=== PATIENT | female | born 1955 | race Caucasian/White ===

== ENCOUNTER 2022-06-04 19:35 | Emergency (ER) | payer BC, SELFPAY ==
[2022-06-04 20:04] VITALS: BP 180/102; PULSE 74; RESP 18; TEMP 37.1; O2SAT 99
--- NOTE | 2022-06-04 20:45 | ED.GENADUL_ITS ---
Discharge Plan Disposition Patient Disposition: HOME Condition: Improving Discharge Details Chief Complaint: Nk/Back Pain Clinical Impression: Acute back pain Primary Care Provider: Barbara Beckford ED Provider: Joseph Taylor Home Meds and New Rx's Prescriptions: No Action No Known Home Meds Discharge Instructions Instructions: Back Pain (ED) Additional Instructions: Please follow-up with your primary care physician. Please return to the emergency department for any worsening symptoms. Medical Decision Making 67-year-old female denies past medical history, prior sections in the past, presents with left lower back discomfort over the last day intermittent in nature both episodes were following a snack, endorses belching and flatus, denies nausea or vomiting denies abdominal pain or chest pain or shortness of breath. No midline spinal tenderness. Neurologically intact ambulatory without assistance afebrile nontoxic hemodynamically stable. Consider muscle spasm versus passed kidney stone versus UTI versus must consider colitis diverticulitis versus less likely biliary colic given location low suspicion for aortic pathology. Perhaps the temporal relationship with a snack is coincidental and this is a simple muscle spasm will trial medications to treat such however if patient has any abnormalities of her labs will have low suspicion to obtain CT abdomen pelvis to assess for intra-abdominal process. Currently asymptomatic resting comfortably. Fluids Toradol 22: 49 patient resting comfortably no acute distress asymptomatic. Trace RBC on UA. Consider passed kidney stone. Muscles consider likely muscle spasm. HPI General Date/Time Provider Initiated Documentation: 06/04/22 20:01 . HPI Narrative: 67-year-old female denies past medical history endorses left lower back discomfort over the past day intermittent in nature associate with belching and passing flatus, worse after eating food. Denies abdominal pain nausea or vomiting. Denies diarrhea or constipation. Denies urinary symptoms. History of 3 prior sections. No other abdominal surgeries. Feeling asymptomatic currently. Localized area of muscle tension noted by her Related Data Home Medications Medication Instructions Recorded Confirmed Unknown [No Known Home Meds] 06/04/22 06/04/22 Allergies Allergy/AdvReac Type Severity Reaction Status Date / Time latex Allergy Unverified 06/04/22 20:12 General Stated Complaint: Nk/Back Pain KAY: 3 Review of Systems Narrative: Review of Systems Constitutional: negative Eyes: negative ENT: negative Cardiovascular: negative Respiratory: negative Gastrointestinal: negative : negative Musculoskeletal: Back pain Skin: negative Neurologic: negative Psych: negative PFSH All Active Problems (Updated 06/04/22 @ 22:50 by Joseph Taylor MD) Acute back pain (Acute) Social History Smoking/Tobacco Use Status: Never Smoking risk assessment performed?: Yes Alcohol Intake: current Alcohol Intake frequency: holidays/special occasions only Alcohol type: wine Drug use: Never Substance use type: does not use Do you feel safe at home: Yes Do you feel safe in your relationship?: Yes Exam Narrative Exam Narrative: Physical Examination General: alert, awake, cooperative, resting comfortably, no acute distress HEENT: normocephalic, atraumatic; PERRL, EOM intact, conjunctiva normal; no nasal discharge; moist mucous membranes, oral and pharyngeal mucosa normal, tolerating secretions Neck: supple, trachea midline; full ROM Chest: normal to inspection Respiratory: normal respiratory effort, speaking in full sentences, clear to auscultation, no wheezing, rales or rhonchi Cardiac: regular rate, regular rhythm, S1S2 intact, no murmurs rubs or gallops GI: abdomen soft, non-tender, non-distended; no palpable mass or hepatosplenomegaly Back: No midline spinal tenderness Skin: no lesions, rashes or trauma appreciated Neuro: AAOx3, normal speech, moving all extremities Psych: Appropriate mood and affect Course Vital Signs Vital signs: Vital Signs Temperature 37.1 C 06/04/22 20:04 Pulse 74 06/04/22 20:04 Respiratory Rate 18 06/04/22 20:04 Blood Pressure 180/102 H 06/04/22 20:04 Pulse Oximetry 99 06/04/22 20:04 Temperature 37.1 C 06/04/22 20:04 Temperature Source Skin 06/04/22 20:04 Pulse 74 06/04/22 20:04 Respiratory Rate 18 06/04/22 20:04 Respiratory Effort 06/04/22 20:09 Blood Pressure 180/102 H 06/04/22 20:04 Blood Pressure Position Sitting 06/04/22 20:04 Pulse Oximetry 99 06/04/22 20:04 Oxygen Delivery Method Room Air 06/04/22 20:04 Oxygen Flow Rate 0 06/04/22 20:04 Pain Level 4 06/04/22 20:04 Comment 06/04/22 20:04
[2022-06-04] MEDS: Normal Saline 1,000 ML 1000 ML IV (20:53)
[2022-06-04 20:54] LABS: Abs Immature Grans 0.02 10^3/uL (0.0-0.06); Absolute Basophil Count 0.03 10^3/uL (0.0-0.2); Absolute Eosinophil Count 0.05 10^3/uL (0.0-0.7); Absolute Lymphocyte Count 1.01 10^3/uL (1.2-3.4); Absolute Monocyte Count 0.62 10^3/uL (0.1-0.8); Absolute Neutrophil Count 7.45 10^3/uL (1.2-6.7); Basophils % 0.3; Eosinophils % 0.5; HCT 42.7 % (36.0-46.0); HGB 14.5 g/dL (11.2-15.7); Immature Grans % 0.2; MCH 29.8 pg (27.0-33.0); MCV 88 fL (80-95); MPV 9.9 fL (8.0-11.0); Monocytes % 6.8; Neutrophils % 81.2; Platelet Count 204 10^3/uL (130-400); RBC 4.87 10^6/uL (3.93-5.22); RDW 12.7 % (11.7-14.6); RDW-SD 40.9 fL; WBC 9.18 10^3/uL (4.4-10.8)
[2022-06-04] MEDS: Cyclobenzaprine 10 MG TAB PO (20:54)
[2022-06-04] MEDS: Ketorolac 15 MG/ML VIAL IVP (20:55)
[2022-06-04 21:29] LABS: ALT 30 U/L (14-59); AST 32 U/L (15-37); Albumin 4.2 g/dL (3.4-5.0); Alkaline Phosphatase 54 U/L (46-116); Anion Gap 8.6 mmol/L (3-11); BUN 24 mg/dL (7-18); Bilirubin, Total 0.6 mg/dL (0.2-1.0); CO2 28.4 mmol/L (21.0-32.0); Calcium 9.9 mg/dL (8.5-10.1); Chloride 103 mmol/L (98-107); Estimated GFR 62.52 (mL/min/1.73m2); Glucose 98 mg/dL (74-106); Lipase 141 U/L (73-393); Potassium 3.2 mmol/L (3.5-5.1); Sodium 140 mmol/L (136-145); Total Protein 7.6 g/dL (6.4-8.2); Troponin I < 50 ng/L (<or=60)
[2022-06-04 22:37] LABS: Bilirubin Negative (Negative); Blood Small (Negative); Clarity Clear (Clear); Glucose Negative (Negative); Ketones 40 mg/dL (Negative); Leukocyte Esterase Negative (Negative); Nitrite Negative (Negative); Urobilinogen 0.2 EU/dL (Up TO 0.2); pH 6.5 (5-8)
[2022-06-04 22:41] LABS: Bacteria Negative HPF (Negative); C & S Indicated? No; Casts Negative LPF (Negative); Crystals Negative HPF (Negative); Epithelial Cells Negative HPF (Negative); Mucus Negative (Negative); WBC Negative HPF (0-5)
[2022-06-04 22:53] VITALS: BP 147/90; PULSE 98; RESP 18; O2SAT 97
== END 2022-06-04 22:56 | disposition home or self-care (01) ==
PROVIDERS: Emergency Provider Emergency Medicine; PCP Family Medicine
DX: M54.50 Low back pain, unspecified (principal)
CPT/HCPCS: 80053; 83690; 96361; 96374; 99284; 81003; 81015; 84484; 85025; J1885

== ENCOUNTER 2023-02-03 21:23 | Emergency (ER) | payer BC, SELFPAY ==
[2023-02-03 21:27] VITALS: BP 205/115; PULSE 75; RESP 16; TEMP 36.1; O2SAT 98
--- NOTE | 2023-02-03 21:28 | W.ED.GENAD ---
Discharge Plan Disposition Patient Disposition: Home Condition: Improving Discharge Details Clinical Impression: Laceration of scalp Primary Care Provider: Barbara Beckford ED Provider: Sarita Taylor Home Meds and New Rx's Prescriptions: No Action No Known Home Meds Discharge Instructions Instructions: Staple Care (ED), Head Laceration (ED) Additional Instructions: 6 venessa were placed to the laceration and area of bleeding. Please keep the dressing on for the rest of the night you may remove it tomorrow morning. Please carefully rinse your hair and a running water in the morning. No soaking no swimming. Be careful when brushing your hair to not dislodge the venessa. Have the venessa removed in 5 to 7 days. Please return to the ER for recurrent bleeding that you cannot get to stop after 15 minutes of direct pressure. Return for any signs of infection including increased redness, swelling drainage or concerns. Return for any vomiting, worsening headache not relieved by Tylenol or ibuprofen. You may return here to have the venessa removed or urgent care what ever is your convenience. Referrals: Barbara Beckford [Primary Care Provider] - 1 week Medical Decision Making 67-year-old female presents to the ER with chief complaint of scalp laceration which occurred approximately an hour prior to arrival. Patient was playing volleyball and an elbow of another player came down on her scalp. She has a blunt type laceration which is bleeding to the left parietal scalp. Any hematoma just adjacent to this. She denies any loss of consciousness no neck pain no headache alert and oriented x4. She is hypertensive upon arrival. Last tdap approx 2 years ago per patient report. 6 venessa were placed to the area and is actively bleeding. There is a hematoma just adjacent to this. Pressure bandage applied. Attempted silver nitrate which was unsuccessful in direct pressure. Considered TXA however that was not needed at this time. After the venessa placed bleeding seems to be stopped at this time. Discussed home care, instructed to keep dressing on tonight and remove it in the am. Return if unable to stop bleeding or concerns. Have venessa removed in 5-7 days. This text was generated using [employer] system, please disregard any oddities of phrase or misspellings. HPI General Mode of arrival: ambulatory. Date/Time Provider Initiated Documentation: 02/03/23 21:26. Limitations to Documentation: no limitations. Information obtained by: patient, RN notes reviewed and old records reviewed. HPI Narrative: 67-year-old female presents to the ER with chief complaint of scalp laceration which occurred approximately an hour prior to arrival. Patient was playing volleyball and an elbow of another player came down on her scalp. She has a blunt type laceration which is bleeding to the left parietal scalp. Any hematoma just adjacent to this. She denies any loss of consciousness no neck pain no headache alert and oriented x4. She is hypertensive upon arrival. Last tdap approx 2 years ago per patient report. Related Data Home Medications Medication Instructions Recorded Confirmed Unknown [No Known Home Meds] 06/04/22 02/03/23 Allergies Allergy/AdvReac Type Severity Reaction Status Date / Time latex Allergy Unverified 02/03/23 21:30 General KAY: 3 Review of Systems Integumentary/Breasts Skin/Breast: Reports as per HPI and Reports wounds PFSH All Active Problems (Updated 02/03/23 @ 22:14 by Sarita Taylor NP) Laceration of scalp (Acute) Social History Smoking/Tobacco Use Status: Never Smoking risk assessment performed?: Yes Alcohol Intake: current Alcohol Intake frequency: holidays/special occasions only Alcohol type: wine Drug use: Never Substance use type: does not use Do you feel safe at home: Yes Do you feel safe in your relationship?: Yes Exam Narrative Exam Narrative: General: Well Developed, Awake and Alert, conversant. Skin: Warm and Dry HEENT: Head: No palpable deformities, Normocephalic, see [facility] diagram below. Nose/Face: Atraumatic. Facial bones nontender to palpation and stable with manipulation. Mouth/Throat: No intraoral trauma. Teeth and mandible are intact. Neck: No midline tenderness, no step off, no deformity to palpation of C-spine. Trachea midline. [facility] Head images: 1. Hematoma which has active bleeding, appears to be from blunt trauma. Face and sinus: normal facial exam Procedures Laceration Laceration 1: Site: scalp Side (If applicable): left Size (cm): 1 Description: stellate and irregular Depth: simple, single layer Local Anesthetic: Lidocaine 1% and with Epi Amount of anesthesia used (mL): 3 Pre-repair: irrigated extensively Skin layer closed with: other (6 venessa)
[2023-02-03] MEDS: Silver Nitrate Stick 1 EACH TP (21:57)
[2023-02-03 22:35] VITALS: BP 176/101; PULSE 76; RESP 16; TEMP 36.1; O2SAT 99
== END 2023-02-03 22:34 | disposition home or self-care (01) ==
PROVIDERS: Emergency Provider Registered Nurse Emergency; PCP Family Medicine
DX: S01.01XA Laceration without foreign body of scalp, initial encounter (principal); W50.0XXA Accidental hit or strike by another person, initial encounter
CPT/HCPCS: 12001